=== PATIENT | female | born 1975 | race Two or more races ===

== ENCOUNTER → 2020-05-18 | Outpatient (CLI) | payer OTHER ==
[~2020-05-18] MED LIST: D3 PO; EVEN500C4 PO; HAIR SKIN NAIL PO; KRIL500C PO; LEVO112T2 PO; OMEP-110 PO; [UNRECOGNIZED DRUG - OTHER] PO; [UNRECOGNIZED DRUG - REMARK] PO; [UNRECOGNIZED DRUG - REMARK] PO; calcium PO
== END | disposition home or self-care (01) ==
LOC: STAR 13:06
PROVIDERS: ATTEND Surgery Surgery of the Hand
DX: Z01.812 Encounter for preprocedural laboratory examination (principal); Z20.828 Contact with and (suspected) exposure to other viral communicable diseases; G56.01 Carpal tunnel syndrome, right upper limb
CPT/HCPCS: 36415; 87635

== ENCOUNTER 2020-05-23 05:42 | Day surgery (SDC) | payer OTHER ==
[~2020-05-23] VITALS: Ht 157.5 cm; Wt 89.0 kg
[2020-05-23] MEDS ORDERED: CHLORHEXIDINE 15 ML UDC MM STA (06:03)
[2020-05-23] MEDS ORDERED: BUPIVACAINE/PF 0.25% ONE (06:06)
[2020-05-23] MEDS ORDERED: MIDAZOLAM 1 MG/ML, 2ML ONE (06:19)
[2020-05-23] MEDS ORDERED: FENTANYL PF 250 MCG/5ML ONE (06:19)
[2020-05-23] MEDS ORDERED: PROPOFOL 10 MG/ML, 20ML ONE (06:21)
[2020-05-23] MEDS ORDERED: DEXAMETHASONE 4 MG/ML, 1ML ONE (06:21)
[2020-05-23] MEDS ORDERED: ONDANSETRON 2MG/ML, 2ML ONE (06:21)
[2020-05-23] MEDS ORDERED: CEFAZOLIN 1,000 MG ONE (06:21)
[2020-05-23] MEDS ORDERED: LACTATED RINGERS 1,000 ML IV SCH (06:30)
[2020-05-23] MEDS ORDERED: PROPOFOL 100 ML ONE (06:48)
[2020-05-23] MEDS ORDERED: HALOPERIDOL 5 MG/ML IV PRN (07:00)
[2020-05-23] MEDS ORDERED: ACETAMINOPHEN 325 MG TABLET PO PRN (07:00)
[2020-05-23] MEDS ORDERED: LABETALOL 5MG/ML, 20ML IV PRN (07:00)
[2020-05-23] MEDS ORDERED: MEPERIDINE/PF 25MG/0.5ML IVPush PRN (07:00)
[2020-05-23] MEDS ORDERED: HYDROmorphone 1 MG/ML, 1ML INJ IVPush PRN (07:00)
[2020-05-23] MEDS ORDERED: hydrALAzine 20 MG/ML, 1ML IV PRN (07:00)
[2020-05-23] MEDS ORDERED: PROMETHAZINE 25 MG/ML, 1ML IVPush PRN (07:00)
[2020-05-23] MEDS ORDERED: FENTANYL PF 100 MCG/2ML IV PRN (07:00)
[2020-05-23] MEDS ORDERED: morphine SULFATE 10 MG/ML, 1ML IVPush PRN (07:00)
[2020-05-23] MEDS ORDERED: OXYcodone 5 MG/5 ML ORAL.SOL UDC PO PRN (07:00)
[2020-05-23] MEDS ORDERED: FENTANYL PF 100 MCG/2ML ONE (07:15)
[2020-05-23] MEDS ORDERED: MEPERIDINE/PF 25MG/ML,1ML ONE (08:28)
== END 2020-05-23 11:15 | disposition home or self-care (01) ==
LOC: OUT 05:42
PROVIDERS: ATTEND Surgery Surgery of the Hand
DX: G56.01 Carpal tunnel syndrome, right upper limb (principal); G56.21 Lesion of ulnar nerve, right upper limb; E03.9 Hypothyroidism, unspecified; K21.9 Gastro-esophageal reflux disease without esophagitis; Z79.890 Hormone replacement therapy; Z79.899 Other long term (current) drug therapy; Z88.5 Allergy status to narcotic agent; Z91.010 Allergy to peanuts; Z82.61 Family history of arthritis
CPT/HCPCS: 64718; 64721; J0690; J1100; J2175; J2250; J2405; J2704; J3010; J7120